=== PATIENT | female | born 1980 | race Caucasian/White ===

== ENCOUNTER → 2016-06-04 | Outpatient (CLI) | payer OTHER ==
[~2016-06-04] MED LIST: ADVIL200 MG PO; FLORASTOR250 MG PO; LEVAQUIN750 MG PO; NORCO 5-325 TA1 EACH PO; TAMOXIFEN CITRA20 MG PO
== END | disposition disaster alternative care site (69) ==
LOC: LNHI 18:11
DX: J90 Pleural effusion, not elsewhere classified (principal); R60.9 Edema, unspecified

== ENCOUNTER → 2016-06-04 | Outpatient (CLI) | payer OTHER | END | disposition disaster alternative care site (69) | LOC: GRAD 08:34 | DX: C50.211 Malignant neoplasm of upper-inner quadrant of right female breast (principal); C77.2 Secondary and unspecified malignant neoplasm of intra-abdominal lymph nodes; C78.2 Secondary malignant neoplasm of pleura; K76.89 Other specified diseases of liver; R16.1 Splenomegaly, not elsewhere classified | CPT/HCPCS: Q9967 ==

== ENCOUNTER → 2016-07-28 | Outpatient (CLI) | payer OTHER | END | disposition disaster alternative care site (69) | LOC: GRAD 13:31 | DX: C50.211 Malignant neoplasm of upper-inner quadrant of right female breast (principal); C78.2 Secondary malignant neoplasm of pleura; C77.2 Secondary and unspecified malignant neoplasm of intra-abdominal lymph nodes; D70.1 Agranulocytosis secondary to cancer chemotherapy; R91.8 Other nonspecific abnormal finding of lung field; R16.1 Splenomegaly, not elsewhere classified | CPT/HCPCS: Q9967 ==

== ENCOUNTER → 2016-10-09 | Outpatient (CLI) | payer OTHER | END | disposition disaster alternative care site (69) | LOC: GRAD 08:37 | DX: C50.211 Malignant neoplasm of upper-inner quadrant of right female breast (principal); C78.2 Secondary malignant neoplasm of pleura; C77.2 Secondary and unspecified malignant neoplasm of intra-abdominal lymph nodes; R16.1 Splenomegaly, not elsewhere classified; K76.89 Other specified diseases of liver; Q61.01 Congenital single renal cyst; M48.8X6 Other specified spondylopathies, lumbar region; D70.1 Agranulocytosis secondary to cancer chemotherapy; R07.9 Chest pain, unspecified; R07.81 Pleurodynia; Z92.21 Personal history of antineoplastic chemotherapy; Z90.49 Acquired absence of other specified parts of digestive tract | CPT/HCPCS: Q9967 ==